=== PATIENT | male | born 1990 | race Caucasian/White ===

== ENCOUNTER 2018-12-20 12:30 | Emergency (ER) | payer OTHER ==
--- NOTE | 2018-12-20 13:27 | EDM.PDOC ---
ED HPI GENERAL MEDICAL PROBLEM - General Chief Complaint: Head Injury Stated Complaint: HEAD INJURY AT WORK Time Seen by Provider: 12/20/18 12:50 Source of Information: Reports: Patient History Limitations: Reports: No Limitations - History of Present Illness INITIAL COMMENTS - FREE TEXT/NARRATIVE: 28 year old male presents for evaluation and treatment of head trauma. 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 He states that he slammed the right side of his head into the window. Reports he cracked the window. He did not lose consciousness. He did fill nauseous but did not vomit. He is appreciating blurry, no wavy vision. No double vision. No numbness or tingling in his extremities. States he did feel lightheaded but states he did not pass out. He is not any blood thinning medication. Had a history of multiple concussions in the past from service in the . Onset: Today Location: Reports: Head Right Upper Head Pain Score (Numeric/FACES): 4 - Related Data Allergies Allergy/AdvReac Type Severity Reaction Status Date / Time No Known Allergies Allergy Verified 12/20/18 12:46 Home Meds: Home Meds . [No Known Home Meds] 12/20/18 [History] Past Medical History Neurological History: Reports: Concussion, Other (See Below) Other Neuro History: History of multiple TBI's - Past Surgical History Musculoskeletal Surgical History: Reports: Other (See Below) Other Musculoskeletal Surgeries/Procedures:: knee surgery Social & Family History - Family History Family Medical History: Noncontributory - Tobacco Use Smoking Status *Q: Current Every Day Smoker Years of Tobacco use: 8 Packs/Tins Daily: 1 - Caffeine Use Caffeine Use: Reports: Coffee - Alcohol Use Days Per Week of Alcohol Use: 7 Number of Drinks Per Day: 1 Total Drinks Per Week: 7 - Recreational Drug Use Recreational Drug Use: No ED ROS GENERAL - Review of Systems Review Of Systems: See Below HEENT: Reports: Vision Change (reports blurry, wavy vision) GI/Abdominal: Reports: Nausea. Denies: Vomiting Neurological: Reports: Headache. Denies: Numbness, Syncope, Tingling ED EXAM, HEAD INJURY - Physical Exam Exam: See Below Exam Limited By: No Limitations General Appearance: Alert, WD/WN, No Apparent Distress Head: Scalp Hematoma (right parietal scalp approximately golf ball sized hematoma). No: Active Bleeding, Facial Ecchymosis, Facial Swelling Eyes: Bilateral Eye: EOMI, Normal Inspection, PERRL Ears: Normal External Exam, Other (no hemotympanums) Nose: Normal Inspection, No Blood Throat/Mouth: Normal Inspection, Normal Lips, Normal Voice, No Airway Compromise Respiratory: No Respiratory Distress, Lungs Clear, Normal Breath Sounds Cardiovascular: Normal Peripheral Pulses, Regular Rate, Rhythm, No Murmur Back Exam: Normal Inspection Extremities: Normal Inspection Neurologic: Alert, Normal Mood/Affect, Other (Normal viiaor-rq-nzhj testing. Normal ebwk-yx-urnt testing. 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 Intravenous contrast was not utilized. Comparison: No prior intracranial imaging. Findings: Ventricles along with basal cisterns and sulci over the convexities are within normal limits for the patient's age. No abnormal parenchymal densities are seen. No evidence of intracranial hemorrhage. No midline shift or mass effect is seen. Slightly prominent cisterna magna is noted which can be seen as a normal variant. Bone window settings were reviewed which show the visualized sinuses to appear clear. No acute calvarial abnormality is appreciated. Impression: 1. Incidental finding as noted above. No acute intracranial abnormality is identified. - Re-Assessments/Exams Free Text/Narrative Re-Assessment/Exam: 12/20/18 13:33 Reviewed the cT results with the patient. Will discharge home with instructions to follow up if not back to baseline by early next week. Note for work given. Discharge instructions as documented. Departure - Departure Time of Disposition: 13:43 Disposition: Home, Self-Care 01 Condition: Fair Clinical Impression: Concussion injury of brain - Discharge Information *PRESCRIPTION DRUG MONITORING PROGRAM REVIEWED*: No *COPY OF PRESCRIPTION DRUG MONITORING REPORT IN PATIENT AIDA: No Instructions: Concussion, Adult, [id number]-[id number] Referrals: PCP,None [Primary Care Provider] - Chang West MD [Physician] - Forms: ED Department Discharge Additional Instructions: [id number] Tylenol or Motrin as needed for pain. may ice the area to help with swelling. Today go home and rest. Avoid stimulating things such as reading, computer etc. Follow-up with occupational health if you continue of headaches next week. Recommend Dr. West at the [facility]. Call [phone] schedule with him. Please return to the ER if your symptoms change or worsen
--- NOTE | 2018-12-20 13:30 | CT ---
Head CT Technique: Multiple axial sections through the brain were obtained. Intravenous contrast was not utilized. Comparison: No prior intracranial imaging. Findings: Ventricles along with basal cisterns and sulci over the convexities are within normal limits for the patient's age. No abnormal parenchymal densities are seen. No evidence of intracranial hemorrhage. No midline shift or mass effect is seen. Slightly prominent cisterna magna is noted which can be seen as a normal variant. Bone window settings were reviewed which show the visualized sinuses to appear clear. No acute calvarial abnormality is appreciated. Impression: 1. Incidental finding as noted above. No acute intracranial abnormality is identified. Diagnostic code #1
== END 2018-12-20 14:01 | disposition home or self-care (01) ==
LOC: JD.ED 12:30
DX: S06.0X0A Concussion without loss of consciousness, initial encounter (principal); S00.03XA Contusion of scalp, initial encounter; F17.210 Nicotine dependence, cigarettes, uncomplicated; W22.8XXA Striking against or struck by other objects, initial encounter; Y99.0 Civilian activity done for income or pay
CPT/HCPCS: 70450; 70450-26; 99283-25